=== PATIENT | male | born 1960 | race Caucasian/White ===

== ENCOUNTER → 2020-04-22 10:15 | Outpatient (CLI) | payer OTHER, SELFPAY ==
[2020-04-22 12:43] LABS: ALB/GLOB Ratio 1.1 RATIO (0.9-2.4); AST(SGOT) 18 U/L (15-37); Alanine Aminotransfer ALT/SGPT 32 U/L (16-61); Albumin, Serum 3.7 g/dL (3.2-5.0); Alkaline Phosphatase 72 U/L (45-117); Anion Gap 5 (5-15); BUN 16 mg/dL (7-18); BUN/Creat Ratio 21.1 RATIO (10-20); Calcium,Total 9.1 mg/dL (8.5-10.1); Chloride 108 mmol/L (98-107); Cholesterol 199 mg/dL (200); Creatinine, Serum 0.76 mg/dL (0.70-1.30); EST Glomerular Filtration Rate 112 mL/min (>60); Est Glom Filt Rate - Afr Amer 135 mL/min (>60); Globulin 3.4 g/dL (2.2-4.2); Glucose 96 mg/dL (74-106); High Density Lipoprotein 56 mg/dL; PSA,Total - Annual Screen 1.42 ng/mL (0.00-4.00); Potassium 4.1 mmol/L (3.5-5.1); Protein, Total 7.1 g/dL (6.4-8.2); Sodium Level 139 mmol/L (136-145); Triglycerides 103 mg/dL; Very Low Density Lipoprotein 21 mg/dL (5-40)
== END ==
PROVIDERS: PCP Family Medicine; Referring Provider Family Medicine; Visit Provider Family Medicine
DX: Z13.220 Encounter for screening for lipoid disorders (principal); Z13.1 Encounter for screening for diabetes mellitus; Z12.5 Encounter for screening for malignant neoplasm of prostate
CPT/HCPCS: 36415; 80053; 80061; 84153; G0103

== ENCOUNTER → 2021-02-08 06:56 | Outpatient (CLI) | payer OTHER, SELFPAY ==
[2021-02-08 10:05] LABS: Absolute Lymphocyte Count 1.75 X10^3/uL (0.83-4.51); Absolute Neutrophil Count 4.3 X10^3/uL (2.0-7.7); Basophil# 0.09 X10^3/uL; Basophil% 1.3 % (0-1); Eosinophil# 0.23 X10^3/uL; Eosinophils% 3.3 % (0-5); Hematocrit 50.8 % (40-54); Lymphocyte # 1.75 X10^3/ul (4.0); Lymphocyte % 25.4 % (19-41); Mean Corp Hgb Conc 31.5 g/dL (32-36); Mean Corpuscular Hgb 26.7 pg (27.0-32.0); Mean Corpuscular Volume 84.8 fL (80-94); Mean Platelet Vol. 9.6 fl (6.2-12.0); Monocyte# 0.47 X10^3/uL; Monocyte% 6.8 % (0-10); NRBC Flagged by Analyzer 0 % (0-5); Neutrophil # 4.34 X10^3/uL (2.7-7.7); Neutrophil % 62.9 % (47-70); Platelet Count 327 K/mm3 (150-450); RBC Distribution Width CV 13.5 % (11.6-14.6); RBC Distribution Width SD 41.9 fl (35.1-43.9); Red Blood Count 5.99 M/mm3 (4.6-6.2); White Blood Count 6.9 K/mm3 (4.4-11.0)
[2021-02-08 10:38] LABS: ALB/GLOB Ratio 1.5 RATIO (0.9-2.4); AST(SGOT) 19 U/L (15-37); Alanine Aminotransfer ALT/SGPT 33 U/L (16-61); Alkaline Phosphatase 71 U/L (45-117); Anion Gap 6 (5-15); BUN 18 mg/dL (7-18); Calcium,Total 8.9 mg/dL (8.5-10.1); Chloride 103 mmol/L (98-107); Cholesterol 212 mg/dL (200); EST Glomerular Filtration Rate 92 mL/min (>60); Est Glom Filt Rate - Afr Amer 111 mL/min (>60); Globulin 2.7 g/dL (2.2-4.2); Glucose 95 mg/dL (74-106); High Density Lipoprotein 54 mg/dL; Potassium 4.7 mmol/L (3.5-5.1); Protein, Total 6.7 g/dL (6.4-8.2); Sodium Level 139 mmol/L (136-145); Triglycerides 161 mg/dL; Very Low Density Lipoprotein 32 mg/dL (5-40)
== END ==
PROVIDERS: PCP Family Medicine; Referring Provider Family Medicine; Visit Provider Family Medicine
DX: Z00.00 Encounter for general adult medical examination without abnormal findings (principal)
CPT/HCPCS: 36415; 80053; 80061; 85025

== ENCOUNTER → 2023-05-24 | Outpatient (CLI) | payer OTHER, SELFPAY ==
--- NOTE | 2023-05-24 10:10 | RAD_ITS ---
INDICATION: PAIN EXAMINATION/TECHNIQUE: X-RAY - XR Spine Lumbar Min 4 Views COMPARISON: None. FINDINGS: VERTEBRAE: Vertebral body height is maintained. There is mild deformity superior endplate of L4 consistent with sequelae of remote minimal compression. Mild osteophyte formation noted arising from the anterior lip of the superior endplate of L4. Remaining vertebral bodies are well-maintained. There is moderate facet hypertrophic change from L3 to S1. Normal appearance the visualized pelvic ring. Osteophyte formation at the RIGHT SI joint. DISCS: Disc spaces are maintained. INCLUDED ABDOMEN: Normal bowel gas pattern. There is a coarse calcification in the RIGHT paraspinous soft tissues at approximately L2. Findings consistent with a renal calcification estimated at 7 x 12 mm. This likely is within renal pelvis, consider evaluation with CT for further clarification of location. RAD/L/S Spine Min 4 Views IMPRESSION: 1. Mild lumbar spondylosis, there is mild deformity superior endplate of L4 which likely represent sequelae of remote injury and remote minimal superior endplate compression. 2. No evidence of acute fracture, malalignment or acute destructive bony process. 3. Pelvic ring is intact. 4. 12 x 7 mm calcification in the RIGHT paraspinal region at L2, likely within the renal collecting system. Consider correlation with noncontrast CT for further clarification. Electronically Signed: Alen Rodriguez MD at 20:45 EDT ,
== END | disposition home or self-care (01) ==
LOC: MTRAD 10:09
PROVIDERS: PCP Family Medicine; Visit Provider Family Medicine
DX: M54.9 Dorsalgia, unspecified (principal)
CPT/HCPCS: 72110

== ENCOUNTER → 2023-06-28 | Outpatient (CLI) | payer OTHER, SELFPAY ==
--- NOTE | 2023-06-28 08:16 | CT_ITS ---
HISTORY: Chronic back pain. TECHNIQUE: Helically acquired images were obtained of the lumbar spine without contrast. 2D reformats were reviewed. A radiation dose optimization technique was used for this scan. 360 images. COMPARISON: XR 05/24/2023. FINDINGS: VERTEBRAE: For the purposes of this report, L5 is a transitional vertebra with a rudimentary disc at L5-S1. Chronic mild compression fracture at the superior endplate of L3 with Schmorl''s node. Posterior elements intact. No acute fracture identified. Generalized osteopenia noted. Bridging osteophytes of the right sacroiliac joint. ALIGNMENT: No significant anterior or posterior subluxation. INTERVERTEBRAL DISCS: Mild disc bulges with facet arthropathy at L3-4 and L4-5. Vacuum disc phenomenon at L4-5. No critical central canal stenosis seen. SOFT TISSUES: Incompletely imaged 1 cm calculus in the right renal pelvis. CT/Spine Lumbar without Contrast IMPRESSION: No evidence for acute fracture or dislocation in the lumbar spine. Mild disc bulges of the lower lumbar spine. Large calculus in the right renal pelvis. Electronically Signed: Litzy Vallejo MD at 8:56 EDT ,
== END | disposition home or self-care (01) ==
LOC: CT 08:16
PROVIDERS: PCP Family Medicine; Referring Provider Family Medicine; Visit Provider Family Medicine
DX: M54.9 Dorsalgia, unspecified (principal); G89.29 Other chronic pain
CPT/HCPCS: 72131

== ENCOUNTER → 2023-07-04 | Outpatient (CLI) | payer OTHER, SELFPAY ==
--- NOTE | 2023-07-04 08:00 | MRI_ITS ---
INDICATION: MID LOWER BACK pain X 3 YEARS EXAMINATION: MRI - MR Spine Lumbar W/O Contrast TECHNIQUE: Multiplanar and multisequence MR images of the lumbar spine. IV Contrast Dosage and Agent: None. COMPARISON: CT lumbar spine 06/28/2023 FINDINGS: VERTEBRAE: Vertebral body heights are preserved. No acute fracture or pathologic marrow replacement. Prominent Schmorl''s node superior endplate of L3. VERTEBRAL ALIGNMENT: No spondylolisthesis. There is preservation of the normal lumbar lordosis. CORD: Normal position and signal intensity of the conus medullaris. L1/L2: Normal disc height and morphology. Normal spinal canal, lateral recesses and neuroforamina. L2/L3: Normal disc height and morphology. Normal spinal canal, lateral recesses and neuroforamina. L3/L4: Minimal annular bulge. No significant central or foraminal stenosis. L4/L5: Minimal annular bulge. No significant central or foraminal stenosis. L5/S1: Normal disc height and morphology. Normal spinal canal, lateral recesses and neuroforamina. SOFT TISSUES: Unremarkable. MRI/Spine Lumbar (Routine) IMPRESSION: Minimal degenerative annular bulges without significant central or foraminal stenosis at any lumbar level. Electronically Signed: Trey Miller MD at 0:35 EDT ,
== END | disposition home or self-care (01) ==
PROVIDERS: PCP Family Medicine; Referring Provider Orthopaedic Surgery; Visit Provider Orthopaedic Surgery
DX: M54.89 Other dorsalgia (principal); G35 Multiple sclerosis
CPT/HCPCS: 72148

== ENCOUNTER → 2023-07-10 | Outpatient (CLI) | payer OTHER, SELFPAY ==
--- NOTE | 2023-07-10 16:50 | RAD_ITS ---
INDICATION: CALCULUS OF KIDNEY EXAMINATION/TECHNIQUE: X-RAY - XR Abdomen 1 View COMPARISON: Plain film of the lumbar spine dated 05/24/2023, CT examination of 06/28/2023. FINDINGS: BOWEL GAS PATTERN: Non-obstructive. No bowel or stomach distention. FREE AIR: Not assessed on a single supine view. ORGANOMEGALY: Not seen. CALCIFICATIONS: There is a prominent calcification overlying the hilar region of the RIGHT kidney measuring approximately 11 x 11 mm, corresponding to the abnormality on recent plain film examination, and partially visible on recent CT examination located in the region of the RIGHT renal pelvis. No other calcifications noted. LOWER CHEST: No acute pathology. BONES AND SOFT TISSUES: No acute pathology. RAD/Abdomen Single View IMPRESSION: 1. Non-obstructive bowel gas pattern. 2. 11 x 11 mm calcification projecting over the RIGHT kidney, particularly in the region of the RIGHT renal hilum/renal pelvis, corresponding to the calcification on recent CT lumbar spine. Electronically Signed: Alen Rodriguez MD at 17:25 EDT ,
[2023-07-10 16:54] LABS: Hematocrit 50.5 % (40-54); Hemoglobin 16.6 g/dL (13.0-16.5); Mean Corp Hgb Conc 32.9 g/dL (32-36); Mean Corpuscular Hgb 27.8 pg (27.0-32.0); Mean Corpuscular Volume 84.4 fL (80-94); Mean Platelet Vol. 9.5 fl (6.2-12.0); Platelet Count 315 K/mm3 (150-450); RBC Distribution Width CV 13.3 % (11.6-14.6); RBC Distribution Width SD 41.2 fl (35.1-43.9); Red Blood Count 5.98 M/mm3 (4.6-6.2); White Blood Count 9.3 K/mm3 (4.4-11.0)
[2023-07-10 18:30] LABS: Anion Gap 6 (5-15); BUN 18 mg/dL (7-18); BUN/Creat Ratio 19.3 RATIO (10-20); Calcium,Total 9.2 mg/dL (8.5-10.1); Chloride 106 mmol/L (98-107); Creatinine, Serum 0.94 mg/dL (0.70-1.30); EST Glomerular Filtration Rate 87 mL/min (>60); Est Glom Filt Rate - Afr Amer 105 mL/min (>60); Glucose 82 mg/dL (74-106); Potassium 4.2 mmol/L (3.5-5.1); Sodium Level 138 mmol/L (136-145)
== END | disposition home or self-care (01) ==
LOC: LAB 16:42
PROVIDERS: PCP Family Medicine; Referring Provider Nurse Practitioner; Visit Provider Nurse Practitioner
DX: Z01.812 Encounter for preprocedural laboratory examination (principal)
CPT/HCPCS: 36415; 74018; 80048; 85027

== ENCOUNTER → 2023-07-12 | Outpatient (CLI) | payer OTHER, SELFPAY ==
--- NOTE | 2023-07-12 08:45 | EKG12_ITS ---
Test Reason : PREOP Blood Pressure : / mmHG Vent. Rate : 067 BPM Atrial Rate : 067 BPM P-R Int : 132 ms QRS Dur : 096 ms QT Int : 382 ms P-R-T Axes : 046 000 061 degrees QTc Int : 403 ms Normal sinus rhythm Normal ECG Confirmed by RASHID PIMENTEL, LUCIUS ([id number]), field map editor LILIANA APARICIO ([id number]) on 07/18/2023 9:34:37 AM Referred By: Patricio Santos Confirmed By:LUCIUS MIKE MD
== END | disposition home or self-care (01) ==
LOC: PSN 08:43
PROVIDERS: PCP Family Medicine; Referring Provider Urology; Visit Provider Urology
DX: Z01.810 Encounter for preprocedural cardiovascular examination (principal)
CPT/HCPCS: 93005

== ENCOUNTER → 2023-09-06 | Outpatient (CLI) | payer OTHER, SELFPAY ==
[2023-09-06 11:00] LABS: PSA,Total - Annual Screen 2.75 ng/mL (0.00-4.00)
== END | disposition home or self-care (01) ==
LOC: LAB 10:03
PROVIDERS: PCP Family Medicine; Referring Provider Urology; Visit Provider Urology
DX: Z12.5 Encounter for screening for malignant neoplasm of prostate (principal)
CPT/HCPCS: 36415; 84153; G0103

== ENCOUNTER → 2024-09-08 | Outpatient (CLI) | payer OTHER, SELFPAY ==
[2024-09-08 11:00] LABS: PSA,Total - Annual Screen 3.73 ng/mL (0.00-4.00)
== END | disposition home or self-care (01) ==
LOC: LAB 09:50
PROVIDERS: Referring Provider Nurse Practitioner; Visit Provider Nurse Practitioner
DX: Z12.5 Encounter for screening for malignant neoplasm of prostate (principal)
CPT/HCPCS: 36415; 84153; G0103

== ENCOUNTER → 2025-09-10 | Outpatient (CLI) | payer OTHER, SELFPAY ==
[2025-09-10 11:35] LABS: PSA,Total - Annual Screen 3.69 ng/mL (0.02-4.00)
--- OUTSIDE RECORDS SUMMARY | 2025-09-10 12:49 | XMS RPT_ITS | CCD ---
Author Organization [facility] Care Team Providers Care Permit Technician Name Role Phone DO Angela Gimenez Primary Care Provider DO Angela Gimenez Referring Provider [phone] Dr. Rahul Vickers Attending Provider [phone] DO Angela Gimenez Primary Care Provider [phone] DO Angela Gimenez Referring Provider [phone] Dr. Rahul Vickers Attending Provider [phone] Dr. Derek Fonseca Attending Provider [phone] Dr. Patricio Santos Referring Provider [phone] Care Physician, No Primary Primary Care Unava ilable [place], Monica Referring Unavailable [place], Monica Attending Unavailable Allergies Allergy Classification Reported Allergen(s) Allergy Type Date of Onset Reaction(s) Facility (4 sources) Codeine Drug Allergy 06-21-2023 Other [facility] (1 source) Codeine Drug Allergy 07-06-2023 [facility] Repository Medications Current Medications Medication Drug Class(es) Dates Sig (Normalized) Sig (Original) Multivitamin preparation (4 sources) Start: 06-21-2023 take 1 tablet by mouth once daily Multivitamin Active 1 TABLET PO DAILY June 20, 2023 11:00pm Start: 06-21-2023 take 1 tablet by arianne th once daily Multivitamin Active 1 TABLET PO DAILY June 21, 2023 12:00am oxyCODONE hydrochloride 5 mg oral tablet (1 source) Opioid Agonist Start: 07-20-2023 take 5 mg by mouth every six hours Oxycodone Active 5 MG PO EVERY 6 HOURS 14 7 July 20, 2023 tadalafil 2.5 mg oral tablet (4 sources) Phosphodiesterase 5 Inhibitor Start: 06-21-2023 take 1 tablet by mouth once daily Tadalafil (Cialis) 2.5 mg tablet Active 2.5 MG PO DAILY June 20, 2023 11:00pm Problems Problem Classification Problem Date Documented Date Episodic/Chronic Calculus of urinary tract (6 sources) Kidney stone; Translations: [Calculus of kidney] 07-06-2023 Episodic Other congenital anomalies (4 sources) Bertolotti's syndrome; 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, 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 Other congenital anomalies (7 sources) Other congenital malformations of spine, not associated with scoliosis; 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), 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 Values obtained with different assay methods cannot be used interchangably. When changing PSA assays in the course of monitoring a patient, additional sequential testing should be carried out to confirm baseline values. Performed By: #### L 501.9910 #### [facility] [address] [place], [address] No Panel InformationOrdered By: Patricio Santos on 09-06-2023 Prostate Specific Antigen Screen 2.75 ng/mL 0.00-4.00 [facility] Comment on above: This test was perfor med using the TPSA assay method for [employer] chemistry system. Values obtained with differentassay methods cannot be used interchangably.When changing PSA assays in the course of monitoring apatient, additional sequential testing should be carriedout to confirm baseline values. Basophil percentageOrdered B y: Monica Martinez on 07-10-2023 Chloride [Moles/Vol] 106 mmol/L 98-107 [facility] Glucose [Mass/Vol] 82 mg/dL 74-106 [facility] Potassium [Moles/Vol] 4.2 mmol/L 3.5-5.1 [facility] Comment on above: Slight Hemolysis, Re sult may be falsely increased. Sodium [Moles/Vol] 138 mmol/L 136-145 [facility] WBC (Bld) [#/Vol] 9.3 10*3/uL 4.4-11.0 [facility] Blood erythrocytes count (nu mber/volume)Ordered By: Moncia Alph[place] on 07-10-2023 RBC (Bld) [#/Vol] 5.98 10*6/uL 4.6-6.2 [facility] Blood hemoglobin measurement (mass/volume)Ordered By: Monica [place] on 07-10-2023 Hemoglobin (Bld) [Mass/Vol] 16.6 g/dL 13.0-16.5 [facility] Blood platelet mean volumeOr dered By: Monica [place] on 07-10-2023 Platelet mean volume (Bld) [Entitic vol] 9.5 fL 6.2-12.0 [facility] Determination of erythrocyte mean corpuscular volume (MCV)Ordered By: Monica [place] on 07-10-2023 MCV (RBC) [Entitic vol] 84.4 fL 80-94 [facility] Hematocrit Auto (Bld) [Volum e fraction]Ordered By: Monica [place] on 07-10-2023 Hematocrit (Bld) [Volume fraction] 50.5 % 40-54 [facility] Laboratory - Chemistry and C hemistry - challengeOrdered By: Monica [place] on 07-10-2023 CO2 [Moles/Vol] 26.0 mmol/L 21.0-32.0 [facility] Urea nitrogen/Creatinine [Mass ratio] 19.3 mg/mg 10-20 [facility] - Hematology and Cell countsOrdered By: Monica [place] on 07-10-2023 Erythrocyte distribution width (RBC) [Entitic vol] 41.2 fL 35.1-43.9 [facility] Erythrocyte distribution width (RBC) [Ratio] 13.3 % 11.6-14.6 [facility] MCH (RBC) [Entitic mass] 27.8 pg 27.0-32.0 [facility] MCHC Auto (RBC) [Mass/Vol]Or dered By: Monica Martinez on 07-10-2023 MCHC (RBC) [Mass/Vol] 32.9 g/dL 32-36 [facility] No Panel InformationOrdered By: Monica Martinez on 07-10-2023 Estimated GFR (MDRD) Amer 105 mL/min >60 [facility] Comment on above: GFR Calc Estimated GFR (MDRD) Non-Af Amer 87 mL/min >60 [facility] Comment on above: Non- GFR Calc Platelets bldOrdered By: Onelia Martinez on 07-10-2023 Platelets (Bld) [#/Vol] 315 10*3/uL 150-450 [facility] Serum or plasma calcium nunu urement (mass/volume)Ordered By: Monica Martinez on 07-10-2023 Calcium [Mass/Vol] 9.2 mg/dL 8.5-10.1 [facility] Serum or plasma creatinine m easurement (mass/volume)Ordered By: Monica Martinez on 07-10-2023 Creatinine [Mass/Vol] 0.94 mg/dL 0.70-1.30 [facility] Comment on above: The validity of the calculated GFR & GFRAA in patients over 70 years has not been determined. Clinical correlation is essential. Serum or plasma urea nitroge n measurement (mass/volume)Ordered By: Monica Martinez on 07-10-2023 Urea nitrogen [Mass/Vol] 18 mg/dL 7-18 [facility] Thin prep Papanicolaou smear with manual screeningOrdered By: Monica Martinez on 07-10-2023 Thin prep Papanicolaou smear with manual screening 6 5-15 [facility] Vital Signs Date Time Vital Sign Value Performing Clinician Ania perez 06-21-2023 09:28-0400 Body height 185.42 cm DO Angela Gimenez Work Phone: [facility] 06-21-2023 09:28-0400 Body mass index (BMI) [Ratio] 27.3 kg/m2 DO Angela Gimenez Work Phone: [facility] 06-21-2023 09:28-0400 Body weight 94.06 kg DO Angela Gimenez Work Phone: [facility] Encounters Encounter Date Encounter Type Care Provider Facility Start: 09-08-2024 End: 09-08-2024 ambulatory No Primary Care Physician Facility:[facility] Start: 09-06-2023 End: 09-06-2023 ambulatory DO Angela Gimenez Work Phone: [facility] Work Phone: Start: 09-06-2023 End: 09-06-2023 Patient encounter procedure DO Angela Gimenez Work Phone: [facility]-Laboratory Work Phone: Start: 07-12-2023 End: 07-12-2023 Non-patient / Non-visit DO Angela Gimenez Work Phone: [facility] Work Phone: Start: 07-12-2023 End: 07-12-2023 Patient encounter procedure DO Angela Gimenez Work Phone: [facility]-Pulmonary Services/Neurology Work Phone: Start: 07-10-2023 End: 07-10-2023 ambulatory DO Angela Gimenez Work Phone: [facility] Work Phone: Start: 07-10-2023 End: 07-10-2023 Patient encounter procedure DO Angela Gimenez Work Phone: [facility]-Laboratory Work Phone: Start: 07-06-2023 End: 07-06-2023 Patient encounter procedure DO Angela Gimenez Work Phone: [facility] Work Phone: Start: 07-04-2023 End: 07-04-2023 ambulatory DO Angela Gimenez Work Phone: [facility] Work Phone: Start: 07-04-2023 End: 07-04-2023 Patient encounter procedure DO Angela Gimenez Work Phone: [facility]-MRI - [facility] Work Phone: Start: 06-28-2023 End: 06-28-2023 ambulatory DO Angela Gimenez Work Phone: [facility] Work Phone: Start: 06-28-2023 End: 06-28-2023 Patient encounter procedure DO Angela Gimenez Work Phone: [facility]-Cat Scan, [facility] Work Phone: Start: 06-21-2023 End: 06-21-2023 Patient encounter procedure DO Angela Gimenez Work Phone: [facility] Work Phone: Start: 05-24-2023 End: 05-24-2023 Patient encounter procedure DO Angela Gimenez Work Phone: [facility]-Radiology, [place] Work Phone: Procedures Date Procedure Procedure Detail Performing Clinician Start: 07-10-2023 Diagnostic radiograp hy of abdomen DO Angela Gimenez Work Phone: Start: 07-04-2023 MRI of lumbar spine DO Angela Gimenez Work Phone: Start: 06-28-2023 CT of lumbar spine DO Hudson Gimenez Work Phone: Start: 05-24-2023 X-ray of lumbosacral spine DO Angela Gimenez Work Phone: Payers Date Payer Category Payer Private Health Insurance [id number] Self-pay [id number] Unknown [facility] [id number] Unknown [facility] [id number] Unknown [facility] [employer] [id number] Unknown [id number] Social History Date Type Detail Facility Start: 06-21-2023 End: 07-06-2023 Tobacco smoking status MNIS Unknown if ever smoked [facility] Start: 1960 Sex Assigned At Male W [facility] Evaluation note Note Date & Type Note Facility Evaluation note Diagnosis Onset Date Bertolotti's syndrome acute [facility] Work Phone: Evaluation note Note Date & Type Note Facility Evaluation note Diagnosis Onset Date Bertolotti's syndrome acute Bertolotti's syndrome acute Kidney calculi acute [facility] Work Phone: Chief Complaint and Reason for Visit Chief Complaint E ORDER LUMBAR SPINE Dorsalgia, unspecified LUMBAR BACK PAIN Reason for Visit Bertolotti's syndrom e Chief Complaint E ORDER LUMBAR SPINE Dorsalgia, unspecified LUMBAR BACK PAIN LUMBAR SPINE Reason for Visit Bertolotti's syndrom e Bertolotti's syndrome Kidney calculi Chief Complaint E ORDER LUMBAR SPINE Dorsalgia, unspecified LUMBAR BACK PAIN LUMBAR SPINE PRE OP Reason for Visit Bertolotti's syndrom e Bertolotti's syndrome Kidney calculi Chief Complaint E ORDER LUMBAR SPINE Dorsalgia, unspecified LUMBAR BACK PAIN LUMBAR SPINE PRE OP PRE OP PSA SCREENING Reason for Visit Bertolotti's syndrom e Bertolotti's syndrome Kidney calculi Family History No Family History Records Found Relationship Condition Age at Onset Recorded Date/T michael mother Diabetes mellitus Unknown Hypertension Unknown father Malignant neoplasm of colon Unknown Malignant neoplasm of lung Unknown Malignant neoplasm of brain Unknown Summary Purpose Advance Directives No Advanced Directives Records Found Additional Source Comments Care Teams (unrecognized sec tion and content) Team Status: Active Member Role Status Joyce Card Family Provider Active Angela M Ammy , DO Primary Care Provider Active Team Status: Inactive Member Role Status Dates Angelasharee Gimenez , DO Primary Care Provider, Referring Provider Active Dr. Rahul Vickers , DO Attending Provider Active Team Status: Inactive Member Role Status Dates Angela Taylor Ammy , DO Primary Care Provider, Attending Provider Active Team Status: Inactive Member Role Status Dates Angela Taylor Ammy , DO Primary Care Provi michael, Attending Provider, Referring Provider Active Team Status: Active Member Role Status Dates Angela Gimenez , DO Primary Care Provider Active Dr. Rahul Vickers , DO Attending Provider, Referring P rovider Active Team Status: Active Member Role Status Dates Angela Taylor Ammy , DO Primary Care Provider Active Monica [place] Attending Provider, Referring Provide r Active Dr. Patricio Santos MD Other Provider Active Team Status: Inactive Member Role Status Dates Angela Gimenez , DO Primary Care Provider Active Dr. Rahul Vickers , DO Attending Provider, Referring P rovider Active Team Status: Inactive Member Role Status Dates Angelasharee Gimenez , DO Primary Care Provider Active Monica [place] Attending Provider, Referring Provide r Active Dr. Patricio Santos MD Other Provider Active Team Status: Active Member Role Status Dates Angela Gimenez , DO Primary Care Provider Active Dr. Patricio Santos MD Attending Provider, Referr ing Provider Active Team Status: Active Member Role Status Dates Angela Gimenez DO Primary Care Provider Active Dr. Derek Fonseca MD Attending Provider Active Dr. Patricio Santos MD Referring Provider Active Team Status: Inactive Member Role Status Dates Angela Gimenez , DO Primary Care Provider Active Dr. Patricio Santos MD Attending Provider, Referr ing Provider Active Goals (unrecognized section and content) Goals may be documented in a n alternate sectionGoals may be documented in an alternate sectionGoals may be documented in an alternate sectionGoals may be documented in an alternate section (unrecognized sect ion and content) No Status Records Found INFORMATION SOURCE (unrecogn ized section and content) DATE CREATED AUTHOR 10/08/2024 [facility] FOR RECORDS PERTAINING TO PATIENTS WHO ARE OR HAVE BEEN ENROLLED IN A CHEMICAL DEPENDENCY/SUBSTANCEABUSE PROGRAM, SOME INFORMATION MAY BE OMITTED. This clinical summary was aggregated from multiple sources. Caution should be exercised in using it in the provision of clinical care. This summary normalizes information from multiple sources, and as a consequence, information in this document may materially change the coding, format and clinical context of patient data. In addition, data may be omitted in some cases. CLINICAL DECISIONS SHOULD BE BASED ON THE PRIMARY CLINICAL RECORDS. [facility] [employer] [facility]. provides no warranty or guarantee of the accuracy or completeness of information in this document.
== END | disposition home or self-care (01) ==
LOC: LAB 10:07
PROVIDERS: Referring Provider Urology; Visit Provider Urology
DX: Z12.5 Encounter for screening for malignant neoplasm of prostate (principal)
CPT/HCPCS: 36415; 84153; G0103